=== PATIENT | female | born 1960 | race Caucasian/White ===

== ENCOUNTER 2016-12-12 21:10 | Emergency (ER) | payer MEDICAID ==
[~2016-12-12] VITALS: Ht 157.5 cm; Wt 79.0 kg
[~2016-12-12 21:10] MED LIST: ALBU8.5H3 INH; CYCL-319 PO; HYDR-906 PO; IBUP-1542 PO; METF500T4 PO; SYN1 PO
[2016-12-12 21:13] VITALS: Ht 157.5 cm; Wt 79.0 kg
[2016-12-12] MEDS ORDERED: SOD CHLORIDE 0.9% 1,000 ML IV STA (21:41)
[2016-12-12 22:12] LABS: ADD SCAN DIFF NO
[2016-12-12 22:17] LABS: BASOPHIL # 0.1 10^3/ul (0.0-0.1); BASOPHILS % 0.6 % (0.0-2.0); EOSINOPHILS # 0.2 10^3/ul (0.0-0.5); EOSINOPHILS % 2.3 % (0.0-7.0); HEMATOCRIT 43.6 % (37.0-47.0); HEMOGLOBIN 14.3 g/dl (12.0-16.0); LYMPHOCYTES # 3.3 10^3/ul (0.8-2.9); LYMPHOCYTES % 31.5 % (15.0-51.0); MEAN CORPUSCULAR HEMOGLOBIN 27.5 pg (29.0-33.0); MEAN CORPUSCULAR HGB CONC 32.8 g/dl (32.0-37.0); MEAN CORPUSCULAR VOLUME 83.8 fl (82.0-101.0); MEAN PLATELET VOLUME 9.9 fl (7.4-10.4); MONOCYTE # 0.6 10^3/ul (0.3-0.9); MONOCYTES % 6.2 % (0.0-11.0); NEUTROPHIL # 6.1 10^3/ul (1.6-7.5); NEUTROPHILS % 58.7 % (39.0-77.0); PLATELET COUNT 220 10^3/UL (140-415); RED CELL DISTRIBUTION WIDTH 12.7 % (11.5-14.5); WHITE BLOOD COUNT 10.4 10^3/ul (4.8-10.8)
[2016-12-12 22:20] LABS: ADD UMIC NO; URINE BILIRUBIN (Dip) NEGATIVE (NEGATIVE); URINE BLOOD (Dip) NEGATIVE (NEGATIVE); URINE COLOR LT. YELLOW (YELLOW); URINE GLUCOSE (Dip) NEGATIVE (NEGATIVE); URINE KETONES (Dip) NEGATIVE (NEGATIVE); URINE LEUKOCYTE ESTERASE (Dip) NEGATIVE (NEGATIVE); URINE NITRITE (Dip) NEGATIVE (NEGATIVE); URINE TOTAL PROTEIN (Dip) NEGATIVE (NEGATIVE); URINE UROBILINOGEN (Dip) 0.2 E.U./dL (0.1-1.0)
[2016-12-12 22:32] LABS: ALBUMIN 4.1 g/dl (3.3-4.9); POTASSIUM 3.9 mmol/L (3.5-5.1)
[2016-12-12 22:34] LABS: CREATININE 0.61 mg/dl (0.44-1.00)
[2016-12-12 22:35] LABS: ALBUMIN/GLOBULIN RATIO 1.17; BILIRUBIN,INDIRECT 0.1 mg/dl (0-1.1); BILIRUBIN,TOTAL 0.1 mg/dl (0.2-1.3); CALCIUM 9.6 mg/dl (8.4-10.2); TOTAL PROTEIN 7.6 g/dl (6.1-8.1)
--- NOTE | 2016-12-12 23:34 | ERD ---
ER Documentation Chief Complaint Date/Time DATE: 12/12/16 TIME: 23:29 Chief Complaint lower abck pain x1 week, denies injury HPI 56 year old female a past medical history of hypothyroidism, kidney injury, diabetes, rhabdomyolysis presents the ED complaining of general weakness in the arms and legs. Denies any fever, chills, chest pain, shortness of breath, cough , rhinorrhea, abdominal pain, vomiting, diarrhea. Reports that she takes metformin and levothyroxine. States that she lost 25 pounds with the last 3 months. Denies any dysuria, urgency, frequency, hematuria, flank pain. ROS All systems reviewed and are negative except as per history of present illness. Medications Home Meds Active Scripts Cyclobenzaprine Hcl* (Cyclobenzaprine Hcl*) 10 Mg Tablet, 10 MG PO TID, #15 TAB Prov:MARISA JEWELL NP 06/24/16 Hydrocodone/Acetaminophen ([place] 5-325 Tablet) 1 Each Tablet, 1 TAB PO Q6H Y for PAIN, #20 TAB Prov:MARISA JEWELL NP 06/24/16 Ibuprofen* (Motrin*) 600 Mg Tab, 600 MG PO Q6H Y for PAIN AND OR ELEVATED TEMP, #30 TAB Prov:MARISA JEWELL NP 06/24/16 Levothyroxine Sodium* (Synthroid*) 100 Mcg Tablet, 100 MCG PO BEFORE BREAKFAST, #45 TAB Prov:NEREYDA RYDER NP 10/02/15 Reported Medications Metformin* (Glucophage*) Unknown Strength Tab, PO BID, #20 TAB 06/24/16 Albuterol Sulfate* (Proair HFA*) 8.5 Gm Hfa.aer.ad, 2 PUFF INH Q6H Y for WHEEZING AND SOB, #1 INHALER 09/28/15 Allergies Allergies: Coded Allergies: No Known Allergy (Unverified , 09/28/15) PMhx/Soc History of Surgery: No Anesthesia Reaction: No Hx Neurological Disorder: No Hx Respiratory Disorders: Yes (Asthma) Hx Cardiac Disorders: No Hx Psychiatric Problems: No Hx Miscellaneous Medical Probl: Yes (chronic fatigue, RHABDOMYLOSIS, THYROID, DM) Hx Alcohol Use: Yes Hx Substance Use: Yes Hx Tobacco Use: Yes Smoking Status: Current some day smoker Physical Exam Vitals Vital Signs Date Time Temp Pulse Resp B/P Pulse Ox O2 Delivery O2 Flow Rate FiO2 12/12/16 21:13 97.4 97 20 110/66 100 Physical Exam Const: Yqe-hgr-ciwvjemgd, well-nourished. In no acute distress. Head: Atraumatic, normocephalic Eyes: Normal Conjunctiva without injection. No purulent discharge. PERRLA. EOMI ENT: Normal external ear. Ear canal without erythema. Tympanic membrane pearly rich without effusion or bulging. Nasal canal clear with normal turbinates. Moist oropharynx without tonsillar exudates. Non-erythematous pharynx. Uvula midline. No drooling. No trismus. Neck: No cervical midline tenderness. Full range of motion. No meningismus. No cervical lymphadenopathy. No JVD. Resp: Clear to auscultation bilaterally. No wheezing, rhonchi, rales, or crackles. No accessory muscle use. No retractions. Cardio: Regular rate and rhythm. No murmurs, rubs or gallops. Abd: Soft, non tender, non distended. Normal bowel sounds. No palpable masses. No rebound tenderness. No guarding. Negative McBurney's Point. Negative Bender's Sign. Skin: Normal skin turgor. No petechiae or rashes Back: No midline tenderness. No CVA tenderness. Ext: No cyanosis, or edema. Distal pulses intact bilaterally. Neur: Awake and alert. Normal gait. Normal coordination. Cranial Nerves II- VII intact. Normal finger to nose. Muscle strength 5/5. Sensation intact. Psych: Normal Mood and Affect Result Diagram: 12/12/16215612/12/162156 Results 24 hrs Laboratory Tests Test 12/12/16 21:47 12/12/16 21:56 12/12/16 21:57 Urine Color LT. YELLOW Urine Clarity SLIGHTLY CLOUDY Urine pH 5.5 Urine Specific [place] 1.025 Urine Ketones NEGATIVE Urine Nitrite NEGATIVE Urine Bilirubin NEGATIVE Urine Urobilinogen 0.2 E.U./dL Urine Leukocyte Esterase NEGATIVE Urine Hemoglobin NEGATIVE Urine Glucose NEGATIVE% Urine Total Protein NEGATIVE Bedside Glucose 125mg/dL White Blood Count 10.410^3/ul Red Blood Count 5.2010^6/ul Hemoglobin 14.3g/dl Hematocrit 43.6% Mean Corpuscular Volume 83.8fl Mean Corpuscular Hemoglobin 27.5pg Mean Corpuscular Hemoglobin Concent 32.8g/dl Red Cell Distribution Width 12.7% Platelet Count 70923^3/UL Mean Platelet Volume 9.9fl Neutrophils % 58.7% Lymphocytes % 31.5% Monocytes % 6.2% Eosinophils % 2.3% Basophils % 0.6% Nucleated Red Blood Cells % 0.0/100WBC Neutrophils # 6.110^3/ul Lymphocytes # 3.310^3/ul Monocytes # 0.610^3/ul Eosinophils # 0.210^3/ul Basophils # 0.110^3/ul Nucleated Red Blood Cells # 0.010^3/ul Sodium Level 138mmol/L Potassium Level 3.9mmol/L Chloride Level 100mmol/L Carbon Dioxide Level 28mmol/L Anion Gap 14 Blood Urea Nitrogen 17mg/dl Creatinine 0.61mg/dl Glucose Level 140mg/dl Calcium Level 9.6mg/dl Total Bilirubin 0.1mg/dl Direct Bilirubin 0.00mg/dl Indirect Bilirubin 0.1mg/dl Aspartate Amino Transf (AST/SGOT) 31IU/L Alanine Aminotransferase (ALT/SGPT) 38IU/L Alkaline Phosphatase 112IU/L Creatine Kinase 54IU/L Total Protein 7.6g/dl Albumin 4.1g/dl Globulin 3.50g/dl Albumin/Globulin Ratio 1.17 Lipase 82U/L Current Medications Medications (Trade) Dose Ordered Sig/Mary Route PRN Reason Start Time Stop Time Status Last Admin Dose Admin Sodium Chloride (NS) 1,000 ml @ 1,000 mls/hr Q1H STAT IV 12/12/16 21:41 12/12/16 22:40 DC 12/12/16 21:57 Procedures/MDM This is a 56-year-old female with a past medical history of hypothyroidism diabetes, kidney injury, rhabdomyolysis presents the ED complaining of lower back pain, arm and leg pain. Patient is afebrile and nontoxic-appearing. Patient has normal vital signs. A CBC, CMP, lipase, total CK, urinalysis was ordered to further evaluate patient. Patient treated here in the ED with 1 L of normal saline with improvement of her symptoms. CBC: No leukocytosis. No e/o of systemic infection. No e/o anemia. CMP: No e/o severe acidosis, alkalosis, renal failure, diabetic ketoacidosis, liver disease Lipase within normal limits. Urine: No leukocyte esterase, no nitrites, no hematuria. CK total is normal. Low suspicion for acute myocardial infarction, pneumothorax, pnuemonia, cardiac tamponade, pulmonary embolism, pleural effusion, AAA, aortic dissection, Boerhaave's syndrome, cardiac dysrhythmias,meningitis, intracranial bleed, seizure, stroke, TIA or other emergent conditions. Follow up with primary care physician in 1-2 days. Instructed patient to return to the ED sooner for any worsening symptoms. Patient's questions were answered. Patient understood and agreed with discharge plan. Patient discharged stable. Departure Diagnosis: Primary Impression: Pain Additional Impression: Weakness Condition: Stable Patient Instructions: Pain Management, Generalized Weakness, Weakness, Unk Cause Referrals: [facility] YOU HAVE RECEIVED A MEDICAL SCREENING EXAM AND THE RESULTS INDICATE THAT YOU DO NOT HAVE A CONDITION THAT REQUIRES URGENT TREATMENT IN THE EMERGENCY DEPARTMENT. FURTHER EVALUATION AND TREATMENT OF YOUR CONDITION CAN WAIT UNTIL YOU ARE SEEN IN YOUR DOCTORS OFFICE WITHIN THE NEXT 1-2 DAYS. IT IS YOUR RESPONSIBILITY TO MAKE AN APPOINTMENT FOR [facility]. IF YOU HAVE A PRIMARY DOCTOR --you should call your primary doctor and schedule an appointment IF YOU DO NOT HAVE A PRIMARY DOCTOR YOU CAN CALL OUR PHYSICIAN REFERRAL HOTLINE AT IF YOU CAN NOT AFFORD TO SEE A PHYSICIAN YOU CAN CHOSE FROM THE FOLLOW[facility] [address] [facility]. [facility] [address] [facility]. [facility] [address] [facility] [address] [facility] [address] [facility]. [facility]. [address] [facility]. [facility] YOU HAVE RECEIVED A MEDICAL SCREENING EXAM AND THE RESULTS INDICATE THAT YOU DO NOT HAVE A CONDITION THAT REQUIRES URGENT TREATMENT IN THE EMERGENCY DEPARTMENT. FURTHER EVALUATION AND TREATMENT OF YOUR CONDITION CAN WAIT UNTIL YOU ARE SEEN IN YOUR DOCTORS OFFICE WITHIN THE NEXT 1-2 DAYS. IT IS YOUR RESPONSIBILITY TO MAKE AN APPOINTMENT FOR [facility]. IF YOU HAVE A PRIMARY DOCTOR --you should call your primary doctor and schedule and appointment IF YOU DO NOT HAVE A PRIMARY DOCTOR YOU CAN CALL OUR PHYSICIAN REFERRAL HOTLINE AT . IF YOU CAN NOT AFFORD TO SEE A PHYSICIAN YOU CAN CHOSE FROM THE FOLLOWING [facility] INSTITUTIONS: [facility] [address] [place] [address] [facility] [address] [place], [place] [id number] [place] [address] [address] [place] [address] [facility] Additional Instructions: FOLLOW UP WITH YOUR PRIMARY CARE PHYSICIAN TOMORROW.Return to this facility if you are not improving as expected. JOSE JUAN GE PA-C Dec 12, 2016 23:34
[2016-12-12 23:37] VITALS: BP 115/74; PULSE 84; RESP 18; TEMP 98.5
== END 2016-12-12 23:37 | disposition home or self-care (01) ==
LOC: FTE 21:10
DX: M54.5 Low back pain (principal); E11.9 Type 2 diabetes mellitus without complications; J45.909 Unspecified asthma, uncomplicated; F17.210 Nicotine dependence, cigarettes, uncomplicated; E03.9 Hypothyroidism, unspecified
CPT/HCPCS: 36415; 80053; 81003; 82550; 82553; 82962; 83690; 84484; 85025; J7030; Z7502

== ENCOUNTER 2017-02-08 18:21 | Emergency (ER) | payer MEDICAID ==
[~2017-02-08] VITALS: Ht 160 cm; Wt 78.0 kg
[2017-02-08 18:24] VITALS: Ht 160 cm; Wt 78.0 kg
[2017-02-08] MEDS ORDERED: KETOROLAC 15 MG INJ IV STA (20:46)
[2017-02-08] MEDS ORDERED: SOD CHLORIDE 0.9% 1,000 ML IV STA (20:46)
[2017-02-08] MEDS ORDERED: ACETAMINOPHEN 500 MG TAB PO STA (20:46)
[2017-02-08 21:21] LABS: ADD SCAN DIFF NO
[2017-02-08 21:22] LABS: BASOPHIL # 0.1 10^3/ul (0.0-0.1); BASOPHILS % 0.6 % (0.0-2.0); EOSINOPHILS # 0.1 10^3/ul (0.0-0.5); EOSINOPHILS % 1.3 % (0.0-7.0); HEMATOCRIT 42.3 % (37.0-47.0); HEMOGLOBIN 13.6 g/dl (12.0-16.0); LYMPHOCYTES # 1.7 10^3/ul (0.8-2.9); LYMPHOCYTES % 18.8 % (15.0-51.0); MEAN CORPUSCULAR HEMOGLOBIN 26.9 pg (29.0-33.0); MEAN CORPUSCULAR HGB CONC 32.2 g/dl (32.0-37.0); MEAN CORPUSCULAR VOLUME 83.8 fl (82.0-101.0); MEAN PLATELET VOLUME 10.4 fl (7.4-10.4); MONOCYTE # 0.6 10^3/ul (0.3-0.9); MONOCYTES % 7.2 % (0.0-11.0); NEUTROPHIL # 6.3 10^3/ul (1.6-7.5); NEUTROPHILS % 70.8 % (39.0-77.0); PLATELET COUNT 196 10^3/UL (140-415); RED BLOOD COUNT 5.05 10^6/ul (4.20-5.40); RED CELL DISTRIBUTION WIDTH 13.1 % (11.5-14.5); WHITE BLOOD COUNT 8.8 10^3/ul (4.8-10.8)
--- NOTE | 2017-02-08 21:33 | RADRPT ---
PROCEDURE: XR Chest. CLINICAL INDICATION: chest pain TECHNIQUE: Single frontal view of the chest was obtained COMPARISON: 06/24/16 FINDINGS: The heart and mediastinum are within normal limits. The lungs are clear. There is no pleural effusion or pneumothorax. RPTAT: AA IMPRESSION: No acute disease. .Ruel Ashby MD, MD Date Time Electronically viewed and signed by .Ruel Ashby MD, on 02/08/2017 21:33 .S/
[2017-02-08 21:36] LABS: POTASSIUM 3.9 mmol/L (3.5-5.1)
[2017-02-08 21:38] LABS: CREATININE 0.53 mg/dl (0.44-1.00)
[2017-02-08 21:39] LABS: CALCIUM 8.9 mg/dl (8.4-10.2)
[2017-02-08 21:57] VITALS: BP 113/77; PULSE 97; RESP 18; TEMP 99.9
[2017-02-08] MEDS ORDERED: IBUP800T25 PO (21:59)
[2017-02-08] MEDS ORDERED: HYDR-3652 PO (21:59)
--- NOTE | 2017-02-08 22:03 | ERD ---
ER Documentation Chief Complaint Date/Time DATE: 02/08/17 TIME: 22:01 Chief Complaint feels weak, body aches, poor apetite HPI 56-year-old female who presents with generalized weakness and body aches and poor appetite. She states approximately 1-1/2 weeks of symptoms including cough that is dry nonproductive and subjective fevers. Sick contacts with children having similar symptoms. No nausea vomiting no abdominal pain, mild headache that is frontal and non-throbbing, no rash, no neck stiffness. ROS All systems reviewed and are negative except as per history of present illness. Medications Home Meds Active Scripts Hydrocodone Bit/Homatrop Me-Br ([place] 5-1.5 mg Tablet) 1 Each Tablet, 1 EACH PO BID Y for COUGH, #10 TAB Prov:KYAW REICH MD 02/08/17 Ibuprofen* (Motrin*) 800 Mg Tab, 800 MG PO Q6H Y for PAIN AND OR ELEVATED TEMP, #30 TAB Prov:KYAW RECIH MD 02/08/17 Cyclobenzaprine Hcl* (Cyclobenzaprine Hcl*) 10 Mg Tablet, 10 MG PO TID, #15 TAB Prov:MARISA JEWELL NP 06/24/16 Hydrocodone/Acetaminophen ([place] 5-325 Tablet) 1 Each Tablet, 1 TAB PO Q6H Y for PAIN, #20 TAB Prov:MARISA JEWELL NP 06/24/16 Ibuprofen* (Motrin*) 600 Mg Tab, 600 MG PO Q6H Y for PAIN AND OR ELEVATED TEMP, #30 TAB Prov:MARISA JEWELL NP 06/24/16 Levothyroxine Sodium* (Synthroid*) 100 Mcg Tablet, 100 MCG PO BEFORE BREAKFAST, #45 TAB Prov:NEREYDA RYDER NP 10/02/15 Reported Medications Metformin* (Glucophage*) Unknown Strength Tab, PO BID, #20 TAB 06/24/16 Albuterol Sulfate* (Proair HFA*) 8.5 Gm Hfa.aer.ad, 2 PUFF INH Q6H Y for WHEEZING AND SOB, #1 INHALER 09/28/15 Allergies Allergies: Coded Allergies: No Known Allergy (Unverified , 09/28/15) PMhx/Soc History of Surgery: No Anesthesia Reaction: No Hx Neurological Disorder: No Hx Respiratory Disorders: Yes (Asthma) Hx Cardiac Disorders: No Hx Psychiatric Problems: No Hx Miscellaneous Medical Probl: Yes (chronic fatigue, RHABDOMYLOSIS, THYROID, DM) Hx Alcohol Use: No Hx Substance Use: No Hx Tobacco Use: No Smoking Status: Never smoker FmHx Family History: No diabetes Physical Exam Vitals Vital Signs Date Time Temp Pulse Resp B/P Pulse Ox O2 Delivery O2 Flow Rate FiO2 02/08/17 21:57 99.9 97 18 113/77 97 02/08/17 20:39 102.5 109 18 139/93 97 02/08/17 18:24 100.2 116 20 147/87 99 Physical Exam General: Well developed, well nourished, no acute distress Head: Normocephalic, atraumatic. Eyes: Pupils equally reactive, EOM intact ENT: Moist mucous membranes Neck: Supple, no lymphadenopathy Respiratory: Lungs clear bilaterally, no distress Cardiovascular: Slight tachycardia, no murmurs, rubs, or gallops Abdominal: Soft, non-tender, non-distended, no peritoneal signs : Deferred MSK: No edema, no unilateral swelling, 5/5 strength Neurologic: Alert and oriented, moving all extremities, normal speech, no focal weakness, no cerebellar signs, no meningismus Skin: No rash Psych: Normal mood Result Diagram: 02/08/17 2100 02/08/17 2100 Results 24 hrs Laboratory Tests Test 02/08/17 21:00 White Blood Count 8.810^3/ul Red Blood Count 5.0510^6/ul Hemoglobin 13.6g/dl Hematocrit 42.3% Mean Corpuscular Volume 83.8fl Mean Corpuscular Hemoglobin 26.9pg Mean Corpuscular Hemoglobin Concent 32.2g/dl Red Cell Distribution Width 13.1% Platelet Count 96526^3/UL Mean Platelet Volume 10.4fl Neutrophils % 70.8% Lymphocytes % 18.8% Monocytes % 7.2% Eosinophils % 1.3% Basophils % 0.6% Nucleated Red Blood Cells % 0.0/100WBC Neutrophils # 6.310^3/ul Lymphocytes # 1.710^3/ul Monocytes # 0.610^3/ul Eosinophils # 0.110^3/ul Basophils # 0.110^3/ul Nucleated Red Blood Cells # 0.010^3/ul Sodium Level 140mmol/L Potassium Level 3.9mmol/L Chloride Level 102mmol/L Carbon Dioxide Level 26mmol/L Anion Gap 16 Blood Urea Nitrogen 13mg/dl Creatinine 0.53mg/dl Glucose Level 138mg/dl Calcium Level 8.9mg/dl Creatine Kinase 76IU/L Serum HCG, Qualitative NEGATIVE Current Medications Medications (Trade) Dose Ordered Sig/Mary Route PRN Reason Start Time Stop Time Status Last Admin Dose Admin Sodium Chloride (NS) 1,000 ml @ 1,000 mls/hr Q1H STAT IV 02/08/17 20:46 02/08/17 21:45 DC 02/08/17 20:58 Acetaminophen (Tylenol Tab) 1,000 mg ONCE STAT PO 02/08/17 20:46 02/08/17 20:48 DC 02/08/17 20:58 Ketorolac Tromethamine (Toradol) 15 mg ONCE STAT IV 02/08/17 20:46 02/08/17 20:48 DC 02/08/17 20:57 Procedures/MDM EKG, MONITORS, & DIAGNOSTIC IMAGING: Chest x-ray: I reviewed and interpreted a 1 view of the chest Mediastinum: No enlargement Cardiac silhouette: No cardiomegaly Airspace: Clear lung hobson bilaterally without evidence of pneumothorax Bones: No evidence of fracture LAB INTERPRETATION: No leukocytosis, normal CPK MEDICAL DECISION MAKING: The patient reported a history of rhabdomyolysis, idiopathic. CPK was checked and is normal. Her presentation is very consistent with likely viral syndrome. No evidence of meningitis. She has a benign abdominal exam, clear lungs. Low concern for pneumonia. ER COURSE: The patient was given IV fluids, antipyretics, Toradol with improvement of her symptoms. Mild headache at this time. The patient's headache is unlikely related to serious etiology. The patient does not exhibit any clinical signs or symptoms, and has no risk factors to suggest headache etiology such as subarachnoid hemorrhage, acute vertebral or carotid dissection, intracranial mass, epidural, subdural hematoma, dural venous sinus thrombosis, giant cell arteritis, or pseudotumor cerebri. The patient is safe for symptom control as an outpatient. She uses an inhaler. No evidence of asthma exacerbation. Cough medication, symptom control was advised. I kept the patient and/or family informed of laboratory and diagnostic imaging results throughout the emergency room course. DISPOSITION PLAN: We discussed follow up with the patient's primary care doctor within 24 to 48 hours as needed. We also discussed return to the emergency room for worsening symptoms or worsening condition. Outpatient referral: [None required] Discharge Medications: Hycodan, Motrin Departure Diagnosis: Primary Impression: Viral syndrome Additional Impression: Cough Condition: Stable Patient Instructions: Myalgias, Viral Syndrome (Adult) Referrals: [facility] Usted se hunt hecho un examen mdico de control que le indica que no est en kenyon condicin que requiera tratamiento urgente en el Departamento de Emergencia. Un estudio ms profundo y el tratamiento de galo condicin pueden esperar sin ningn riesgo hasta que usted sea atendida/o en el consultorio de galo mdico o kenyon cl fernando. Es responsabilidad suya arreglar kenyon maribel para el seguimiento del bushra. MANEJO DE CONDICIONES NO URGENTES EN EL FUTURO 1) Si usted tiene un mdico de atencin primaria: Usted debera llamar a galo mdico de atencin primaria antes de venir al departamento de emergencia. Despus de las horas de consultorio, galo doctor o galo asociado/a est disponible por telfono. El mdico o enfermero de rhys en el servicio telefnico puede asesorarle por shirley medio para atender el problema, o bushra contrario se puede programar kenyon maribel. 2) Si usted no tiene un mdico de atencin primaria: Llame al mdico o clnica de referencia que aparece abajo vincent las horas de consultorio para hacer kenyon maribel para que le vean. CLINICAS: [facility] [phone] [facility] [phone] [address] [facility] [phone] [facility] [phone] [facility]. [facility] 485 [phone] [address] [facility] [phone] [address] [facility]. [facility] () Usnilo se hunt hecho un examen mdico de control que le indica que no est en kenyon condicin que requiera tratamiento urgente en el Departamento de Emergencia. Un estudio ms profundo y el tratamiento de galo condicin pueden esperar sin ningn riesgo hasta que usted sea atendida/o en el consultorio de galo mdico o kenyon cl fernando. Es responsabilidad suya arreglar kenyon maribel para el seguimiento del bushra. MANEJO DE CONDICIONES NO URGENTES EN EL FUTURO 1) Si usted tiene un mdico de atencin primaria: Usted debera llamar a galo mdico de atencin primaria antes de venir al departamento de emergencia. Despus de las horas de consultorio, galo doctor o galo asociado/a est disponible por telfono. El mdico o enfermero de rhys en el servicio telefnico puede asesorarle por shirley medio para atender el problema, o bushra contrario se puede programar kenyon maribel. 2) Si usted no tiene un mdico de atencin primaria: Llame al mdico o condado institucions de referencia que aparece abajo vincent las horas de consultorio para hacer kenyon maribel para que le vean. SI USTED NO PUEDE PAGAR PARA CHUYITA UN MEDICO puede ir a: [facility] [address] [place] [address] [facility] [address] [place] [address] [facility] [address] [place] [address] [facility] [address] [place] [address] Additional Instructions: Llame al doctor nombrado abajo (Referral Sources) MAANA y sukhdeep kenyon MARIBEL PARA DENTRO DE KENYON SEMANA. Dgale a la secretaria que nosotros le instruimos hacer esta maribel.Avise o llame si galo condicin se empeora antes de la maribel. KYAW ERICH MD February 08, 2017 22:03
== END 2017-02-08 22:25 | disposition home or self-care (01) ==
LOC: E/R 18:21
DX: B34.9 Viral infection, unspecified (principal); R05 Cough; J45.909 Unspecified asthma, uncomplicated; E11.9 Type 2 diabetes mellitus without complications; Z79.84 Long term (current) use of oral hypoglycemic drugs
CPT/HCPCS: 71010; 80048; 82550; 84703; 85025; J1885; J7030; Z7610; 36415; 96361; 96374

== ENCOUNTER 2017-04-22 20:10 | Emergency (ER) | payer SELFPAY ==
[~2017-04-22] VITALS: Wt 78.0 kg
[~2017-04-22 20:10] MED LIST changes: +HYDR-3652 PO; +IBUP800T25 PO
== END 2017-04-22 22:00 | disposition left against medical advice (07) ==
LOC: FTE 20:10 → E/R 22:00
DX: Z53.21 Procedure and treatment not carried out due to patient leaving prior to being seen by health care provider (principal)

== ENCOUNTER 2017-10-15 19:53 | Emergency (ER) | END 2017-10-15 22:39 | disposition home or self-care (01) ==

== ENCOUNTER 2018-01-03 19:24 | Emergency (ER) | END 2018-01-03 23:58 | disposition home or self-care (01) ==

== ENCOUNTER 2018-02-06 13:53 | Inpatient (IN) | END 2018-02-09 16:34 | disposition home or self-care (01) | DRG 871 ==

== ENCOUNTER 2018-12-06 20:16 | Emergency (ER) | payer SELFPAY ==
[~2018-12-06] VITALS: Wt 77.5 kg
[~2018-12-06 20:16] MED LIST changes: +ADV25050 INHALATION; -ALBU8.5H3 INH; -CYCL-319 PO; +CYCL10TA7 PO; -HYDR-3652 PO; -HYDR-906 PO; -IBUP-1542 PO; -IBUP800T25 PO; +LEVO-86 PO; +LEVO750T25 PO; +MED4DP PO; +METF-480 PO; -METF500T4 PO; +NITR-58 PO; +PHEN-538 PO; -SYN1 PO
[2018-12-06 20:46] VITALS: BP 139/80; PULSE 92; RESP 18
== END 2018-12-07 02:35 | disposition left against medical advice (07) ==
LOC: FTE 20:16
DX: Z53.21 Procedure and treatment not carried out due to patient leaving prior to being seen by health care provider (principal)

== ENCOUNTER 2018-12-10 19:56 | Emergency (ER) | payer SELFPAY ==
[~2018-12-10] VITALS: Wt 75.0 kg
--- NOTE | 2018-12-10 23:34 | ERD ---
ER Documentation Chief Complaint Chief Complaint SOB X'S 3 DAYS HPI This is a 58-year-old female presents emergency department with complaints of cough for about 3 days. LMP: Denies headache, head injury, loss of consciousness, dizziness, neck pain, neck stiffness, throat pain, difficulty swallowing, difficulty breathing lying flat, shoulder pain, chest pain, back pain, abdominal pain, nausea, vomiting, constipation, diarrhea, urinary symptoms, or possibility being , loss of bowel and bladder control, trauma, injury, falls, difficulty walking due to pain, numbness or tingling sensation, calf pain, recent travel, recent major surgery in the last 3 weeks, calf pain, recent long travel, recent exposure to any illness, recent antibiotic use in the last 3 months, fever, chills, seizures. Past medical history: Diabetes. Thyroid disease. Surgical history: Social: Denies smoking, use of alcoholic beverages, use of illegal drugs. Diabetes. ROS All systems reviewed and are negative except as per history of present illness. Medications Home Meds Active Scripts Acetaminophen* (Tylophen*) 500 Mg Capsule, 1 CAP PO Q6H PRN for PAIN AND OR ELEVATED TEMP, #20 CAP Prov:ISHAAN MCALLISTER 12/11/18 Azithromycin* (Zithromax*) 250 Mg Tablet, 250 MG PO .ZPACK DIRECTED, #6 TAB TAKE 500 MG (2 TABS) THE FIRST DAY THEN 250 MG (1 TAB) DAYS 2-5 Prov:SUSANAGEORGESALMAJARROD Rico 12/11/18 Benzonatate* (Tessalon Perle*) 100 Mg Capsule, 100 MG PO Q8H PRN for COUGH, #15 CAP Prov:ISHAAN MCALLISTER F 12/11/18 Albuterol Sulfate* (Proair HFA*) 8.5 Gm Hfa.aer.ad, 2 PUFF INH Q4 PRN for WHEEZING, #1 INHALER Prov:ISHAAN MCALLISTER F 12/11/18 Phenazopyridine Hcl* (Pyridium*) 200 Mg Tab, 200 MG PO TID PRN for URINARY PAIN, #6 TAB Prov:HEBERT MEDEROS DO 10/31/18 Nitrofurantoin Monohyd Macrocr* (Macrobid*) 100 Mg Capsr, 100 MG PO BID for 7 Days, CAP Prov:LEFLORENCIOHEBERT CABRERA DO 10/31/18 Metformin* (Glucophage*) 850 Mg Tablet, 850 MG PO BID WITH MEALS, #90 TAB Prov:GILA DUARTE 02/09/18 Levofloxacin* (Levaquin*) 750 Mg Tablet, 750 MG PO DAILY, #5 TAB Prov:GILA DUARTE 02/09/18 Methylprednisolone* (Medrol* DOSE PACK) 4 Mg/Dose-Pack Tab.ds.pk, 4 MG PO . DIRECTED, #1 PACKET Prov:GILA DUARTE 02/09/18 Salmeterol Xinaf/Fluticasone* (Advair*) 250-50 Diskus Inhaler, 1 INH INHALATION BID, #1 INHALER Prov:GILA DUARTE 02/09/18 Cyclobenzaprine Hcl* (Cyclobenzaprine Hcl*) 10 Mg Tablet, 10 MG PO TID, #15 TAB Prov:MARISA JEWELL NP 06/24/16 Levothyroxine Sodium* (Synthroid*) 100 Mcg Tablet, 100 MCG PO BEFORE BREAKFAST, #45 TAB Prov:NEREYDA RYDER RN FORENSIC 10/02/15 Allergies Allergies: Coded Allergies: No Known Allergy (Unverified , 02/06/18) PMhx/Soc History of Surgery: Yes (c section) Anesthesia Reaction: No Hx Neurological Disorder: Yes (diabetic neuropathy) Hx Respiratory Disorders: Yes (asthma) Hx Cardiac Disorders: No Hx Psychiatric Problems: Yes Hx Miscellaneous Medical Probl: No Hx Alcohol Use: Yes (CLEAN FOR 17 YEARS) Hx Substance Use: Yes Hx Tobacco Use: No Physical Exam Vitals Physical Exam Const: No acute distress Head: Atraumatic Eyes: Normal Conjunctiva ENT: Normal External Ears, Nose and Mouth. No signs of airway obstruction. Neck: Full range of motion. No meningismus. Resp: No accessory muscle use in breathing. Mild wheezing bilaterally. Cardio: Regular rate and rhythm, no murmurs Abd: Soft, non tender, non distended. Normal bowel sounds Skin: No petechiae or rashes. Color appears normal for ethnicity. No skin tenting. No signs of severe dehydration. Back: No midline or flank tenderness Ext: No cyanosis, or edema Neur: Awake and alert. No neurological deficits. Psych: Normal Mood and Affect Results 24 hrs Current Medications Medications Dose Sig/Mary Start Time Status Last (Trade) Ordered Route PRN Stop Time Admin Dose Reason Admin 10 mg ONCE ONCE 12/11/18 DC 12/10/18 Dexamethasone IM 00:00 23:47 (Decadron) 12/11/18 00:01 Albuterol 5 mg ONCE STAT 12/10/18 DC 12/10/18 (Proventil HHN 23:35 23:50 0.083% (Neb)) 12/10/18 23:36 Ipratropium 0.5 mg ONCE ONCE 12/11/18 DC 12/10/18 [place] HHN 00:00 23:50 (Atrovent 12/11/18 00:01 0.02% (Neb)) Procedures/MDM I offered diagnostic tests, imaging but patient strongly refused. Stated that she wants a treatment here in emergency department and wants to go home with prescriptions. Diagnostic tests: Clinical exam. Influenza a and B: Negative for influenza A. Negative for influenza B. Treatment: Albuterol and Atrovent breathing treatment. Dexamethasone IM. Re-evaluation: Respirations even and unlabored. No accessory muscle use in breathing. Lung sounds are clear to auscultation. Differential diagnosis I have low suspicion for bronchospasm, status asthmaticus. Final diagnosis: Bronchitis. Shortness of breath. Prescription: Azithromycin. Tessalon Perles. Pro-air. Follow-up with PCP in the next 24-48 hours. Come back here in the emergency department for any new symptoms or any worsening symptoms. All questions and concerns were answered. Patient and family members verbalized understanding and agreed with plan of care. Hemodynamically stable on discharge. Departure Diagnosis: Primary Impression: Shortness of breath Additional Impression: Bronchitis Condition: Stable Additional Instructions: Follow-up with PCP in the next 24-48 hours. Come back here in the emergency department for any new symptoms or any worsening symptoms. ISHAAN MCALLISTER Dec 10, 2018 23:34
[2018-12-10] MEDS ORDERED: ALBUTEROL 0.083% (NEB) 2.5 MG/3 ML AMP HHN STA (23:35)
[2018-12-11] MEDS ORDERED: IPRATROPIUM (NEB) 0.5 MG/2.5 ML AMP HHN ONE
[2018-12-11] MEDS ORDERED: DEXAMETHASONE 10 MG/ML 1 ML INJ IM ONE
[2018-12-11] MEDS ORDERED: ALBU8.5H8 INH (00:33)
[2018-12-11] MEDS ORDERED: BENZ-6 PO (00:33)
[2018-12-11] MEDS ORDERED: ACET500C5 PO (00:34)
[2018-12-11] MEDS ORDERED: AZIT250T PO (00:34)
[2018-12-11 01:08] VITALS: BP 139/75; PULSE 92; RESP 16
== END 2018-12-11 01:10 | disposition home or self-care (01) ==
LOC: FTE 19:56
DX: J40 Bronchitis, not specified as acute or chronic (principal); E11.9 Type 2 diabetes mellitus without complications; Z79.84 Long term (current) use of oral hypoglycemic drugs
CPT/HCPCS: 87400; 94664; J1100; 96372